=== PATIENT | male | born 1985 | race Caucasian/White ===

== ENCOUNTER 2017-06-26 12:02 | Emergency (ER) | payer OTHER ==
[~2017-06-26] VITALS: Ht 172.7 cm; Wt 110.2 kg
[2017-06-26] MEDS ORDERED: AMOXICILLIN500 M2 PO (13:25)
[2017-06-26 13:32] VITALS: BP 137/84
== END 2017-06-26 13:32 | disposition home or self-care (01) | DRG 153 ==
LOC: ED 12:02
DX: J02.0 Streptococcal pharyngitis (principal); R05 Cough

== ENCOUNTER 2018-10-11 12:55 | Emergency (ER) | payer OTHER ==
[~2018-10-11] VITALS: Ht 172.7 cm; Wt 105.0 kg
[~2018-10-11 12:55] MED LIST: AMOXICILLIN500 M2 PO
[2018-10-11] MEDS ORDERED: PROVENTIL108 MCG/AC IN (14:32)
[2018-10-11] MEDS ORDERED: ZITHROMAX250 MG PO (14:32)
[2018-10-11 14:37] VITALS: BP 136/84
== END 2018-10-11 14:37 | disposition home or self-care (01) ==
LOC: ED 12:55
DX: J06.9 Acute upper respiratory infection, unspecified (principal); R05 Cough; J02.9 Acute pharyngitis, unspecified; R52 Pain, unspecified